=== PATIENT | female | born 1985 | race African-American/Black ===

== ENCOUNTER 2017-11-01 21:31 | Emergency (ER) | payer SELFPAY ==
[~2017-11-01] VITALS: Ht 149.9 cm; Wt 141.4 kg
[2017-11-02] MEDS ORDERED: IBUPROFEN 600MG TABLET PO STA (00:32)
[2017-11-02 01:56] LABS: CLARITY URINE CLEAR (CLEAR); COLOR URINE YELLOW (YELLOW); KETONES URINE TRACE (NEGATIVE); LEUKOCYTE ESTERASE URINE TRACE (NEGATIVE); NITRITE URINE NEGATIVE (NEGATIVE); OCCULT BLOOD URINE NEGATIVE (NEGATIVE); PROTEIN URINE NEGATIVE (NEGATIVE); SPECIFIC GRAVITY URINE 1.034 (1.005-1.030)
[2017-11-02] MEDS ORDERED: KETOROLAC 60MG/2ML VIAL IM ONE (02:45)
[2017-11-02 03:20] LABS: BASOPHILS % 0.2 % (0.0-2.0); EOSINOPHILS % 1.7 % (0.0-5.0); HEMATOCRIT. 34.9 % (36.0-48.0); HEMOGLOBIN. 11.5 g/dL (12.0-16.0); MEAN CORPUSCULAR HEMOGLOBIN 27.4 pg (28.0-32.0); MEAN CORPUSCULAR VOLUME 83.1 fL (81.0-99.0); MEAN PLATELET VOLUME 8.4 fl (7.4-10.4); MONOCYTES % 6.6 % (2.0-8.0); NEUTROPHILS % 57.5 % (40.0-76.0); PLATELET 324 x1000/uL (130-400); RED BLOOD CELL COUNT 4.19 mill/uL (4.2-5.4); RED CELL DISTRIBUTION WIDTH 14.8 % (11.6-14.6)
[2017-11-02 03:26] LABS: CHLORIDE 105 mEq/L (98-107)
[2017-11-02 05:15] VITALS: BP 132/70
== END 2017-11-02 05:20 | disposition home or self-care (01) ==
LOC: ER 21:31
DX: M79.1 Myalgia (principal); M79.89 Other specified soft tissue disorders; M54.9 Dorsalgia, unspecified; R07.9 Chest pain, unspecified; M79.605 Pain in left leg; M79.604 Pain in right leg; I10 Essential (primary) hypertension; F41.9 Anxiety disorder, unspecified; F17.200 Nicotine dependence, unspecified, uncomplicated
CPT/HCPCS: 36415; 80053; 81003; 81025; 85025; 93005; 93970; 96372; 99285; J1885; Z7610

== ENCOUNTER 2024-05-13 16:14 | Emergency (ER) | payer SELFPAY ==
[~2024-05-13] VITALS: Ht 165.1 cm; Wt 115.0 kg
[2024-05-13 16:15] VITALS: BP 132/92; PULSE 90; RESP 18; TEMP 36.4; O2SAT 98
== END 2024-05-13 21:01 | disposition left against medical advice (07) ==
LOC: ER 16:14
DX: M79.673 Pain in unspecified foot (principal); Z53.21 Procedure and treatment not carried out due to patient leaving prior to being seen by health care provider